=== PATIENT | male | born 1980 | race Caucasian/White ===

== ENCOUNTER 2017-01-23 22:32 | Emergency (ER) | payer OTHER ==
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
--- NOTE | 2017-01-24 01:42 | ED ORDER SUMMARY ---
..... Patient: SHANI PRAKASH OrderSheet [facility] VisitID: [id number] [address] [place] [address] 36y, M Registration Date/Time: 01/23/2017 ORDER SHEET Weight: 90.7 kg (stated) Allergies: No Known Drug Allergy GENERAL ORDERS: Knee 4V Left Urgent (23:22 01/23/2017 DDean R.N. per protocol) (Ack 23:31 CHagerty ER Engine House Helper) (23:38 CHagerty ER Engine House Helper) Femur Left Urgent (00:47 01/24/2017 Damaris BROOKS) (Ack 0:48 CHagerty ER Engine House Helper) (1:25 Enriqueta) Dress Wounds (01:38 01/24/2017 Damaris BROOKS) (1:48 DDavis R.N.) MEDICATION ORDERS: Alprazolam PO 0.5 mg (NOW) (00:51 01/24/2017 Damaris BROOKS) (1:08 TBowen R.N.) IV FLUIDS: ORDER SHEET NOTES: [Electronically signed by Keshav Stewart R.N. (01:57 01/24/2017)] [Electronically signed by Jaden Lyles MD (19:33 01/28/2017)] [Electronically locked/signed by Keshav Stewart R.N. (01:57 01/24/2017)]
--- NOTE | 2017-01-24 01:42 | ED ORDER SUMMARY ---
..... Patient: SHANI PRAKASH OrderSheet [facility] VisitID: [id number] [address] [place] [address] 36y, M Registration Date/Time: 01/23/2017 ORDER SHEET Weight: 90.7 kg (stated) Allergies: No Known Drug Allergy GENERAL ORDERS: Knee 4V Left Urgent (23:22 01/23/2017 DDean R.N. per protocol) (Ack 23:31 CHagerty ER Dowel Sticker Operator) (23:38 CHagerty ER Dowel Sticker Operator) Femur Left Urgent (00:47 01/24/2017 Damaris BROOKS) (Ack 0:48 CHagerty ER Dowel Sticker Operator) (1:25 Enriqueta) Dress Wounds (01:38 01/24/2017 Damarsi BROOKS) (1:48 DDavis R.N.) MEDICATION ORDERS: Alprazolam PO 0.5 mg (NOW) (00:51 01/24/2017 Damaris BROOKS) (1:08 TBowen R.N.) IV FLUIDS: ORDER SHEET NOTES: [Electronically signed by Keshav Stewart R.N. (01:57 01/24/2017)] [Electronically signed by Jaden Lyles MD (19:33 01/28/2017)] [Electronically locked/signed by Keshav Stewart R.N. (01:57 01/24/2017)]
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
--- NOTE | 2017-01-28 19:33 | ED MAR SUMMARY ---
..... Medication Administration Record [facility] [address] [place] [address] Patient: SHANI PRAKASH Visit ID: [id number] 36y, M Weight: 90.7 kg Height/Length: 72 in BMI: 27.1 ALLERGIES: No Known Drug Allergy Given 01:08 01/24/2017 Cresencio Mckenna Medication Administered: ALPRAZOLAM [PO], Dose: 0.5 mg PO. Medication Ordered: Alprazolam PO 0.5 mg (NOW).
--- NOTE | 2017-01-28 19:33 | ED MED RECONCILIATION SUMMARY ---
Patient: SHANI PRAKASH Medication Reconciliation Report [facility] VisitID: [id number] [address] [place] [address] 36y, M Registration Date/Time: 01/23/2017 Weight: 90.7 kg Height/Length: 72 in. BMI: 27.1 ALLERGIES: No Known Drug Allergy The patient's Home Medications are listed below: THE FOLLOWING MEDICATIONS NEED TO BE RECONCILED: Ibuprofen Oral 600 mg, PRN The source(s) of the original Home Medication information: Not obtained. The following Medications were given to the patient in the Emergency Department: Alprazolam [PO] PO 0.5 mg, administered: 01/24/2017 1:08:00 AM The following Medications were prescribed to the patient: None.
--- NOTE | 2017-01-28 19:33 | ED DISCHARGE INSTRUCTIONS ---
Patient: SHANI PRAKASH General Instructions [facility] VisitID: [id number] [address], [place] [id number] 36y, M Registration Date/Time: 01/23/2017 Left knee contusion; left knee effusion; left knee hemarthrosis; sprain of the left medial and lateral collateral ligament. Contusion to the left thigh. INSTRUCTIONS Use crutches as needed. Wear knee immobilizer until better. You may walk and bear weight as tolerated. Warnings: GENERAL WARNINGS: Return or contact your physician immediately if your condition worsens or changes unexpectedly, if not improving as expected, or if other problems arise. Understanding of the discharge instructions verbalized by patient. Follow-up with: [facility], , [address] [place], [address] Follow up in one week. Call for an appointment. ADDITIONAL INFORMATION Contusion,Soft Tissue You have a CONTUSION, which is a bruise with swelling and some bleeding under the skin. There are no broken bones. This injury takes a few days to a few weeks to heal. Home Care: 1) Keep the injured part elevated to reduce pain and swelling. This is especially important during the first 48 hours. 2) Make an ice pack (ice cubes in a plastic bag, wrapped in a towel) and apply for 20 minutes every 1-2 hours the first day. Continue this 3-4 times a day until the pain and swelling goes away. 3) You may use acetaminophen (Tylenol) or ibuprofen (Motrin, Advil) to control pain, unless another pain medicine was prescribed. [ NOTE : If you have chronic liver or kidney disease or ever had a stomach ulcer or GI bleeding, talk with your doctor before using these medicines.] Follow Up with your doctor or this facility if you are not improving within the next THREE days. [NOTE: If X-rays were taken, they will be reviewed by a radiologist. You will be notified of any new findings that may affect your care.] Get Prompt Medical Attention if any of the following occur: -- Pain or swelling increases -- Injured arm or leg becomes cold, blue, numb or tingly -- Redness, warmth or drainage from the skin Knee Pain, Possible Torn Meniscus Themeniscusis a tough cartilage pad that cushions the inside of the knee joint. It serves as a shock absorber and spreads the weight of your body evenly across the knee joint. This prevents excess wear and tear to the bones of that joint. The most common causes of meniscal tears are due to injury (especially related to sports) and degenerative disease (as occurs with aging). A meniscus tear commonly occurs during a twisting injury when the knee is bent. This causes pain, swelling, reduced movement of the knee and difficulty walking. There may be popping, clicking, joint locking or inability to completely straighten the knee. Ligaments of the knee may also be injured. Initial diagnosis of a torn meniscus is by physical exam and x-rays. In the case of an acute injury, the knee may be too painful to examine fully. A more accurate exam can be performed after the initial swelling goes down. An MRI (magnetic image scan) may be ordered to make a final diagnosis. Initial treatment of a suspected meniscal injury is with ice and rest and preventing movement of the knee. A splint or Velcro knee immobilizer may be applied to protect the joint. Depending on the severity of the injury, surgery may be required. A cartilage injury may take 4-12 weeks to heal depending on the severity. Home Care: Stay off the injured leg as much as possible until you can walk on it without pain. If you have a lot of pain with walking, crutches or a walker may be prescribed. (These can be rented or purchased at many pharmacies and surgical or orthopedic supply stores). Follow your doctor's advice regarding when to begin bearing weight on that leg. Keep your leg elevated to reduce pain and swelling. When sleeping, place a pillow under the injured leg. When sitting, support the injured leg so it is level with your waist. This is very important during the first 48 hours. Apply an ice pack (ice cubes in a plastic bag, wrapped in a towel) over the injured area for 20 minutes every 1-2 hours the first day. You can place the ice pack directly over the splint. If a Velcro knee immobilizer was applied, you can open this to apply the ice pack directly to the knee. Continue with ice packs 3-4 times a day for the next two days, then as needed for the relief of pain and swelling. You may use acetaminophen (Tylenol) or ibuprofen (Motrin, Advil) to control pain, unless another pain medicine was prescribed. [NOTE: If you have chronic liver or kidney disease or ever had a stomach ulcer, talk with your doctor before using these medicines.] If you were given a splint, keep it completely dry at all times. Bathe with your splint out of the water, protected with a large plastic bag, rubber-banded at the top end. If a fiberglass splint gets wet, you can dry it with a hair-dryer. If you have a Velcro knee immobilizer, you can remove this to bathe, unless told otherwise. Check with your doctor before returning to sports or full work duties. Follow Up with your doctor, or as advised, within 1-2 weeks for another exam. Further testing may be required to assess the extent of your injury. [NOTE: If X-rays were taken, they will be reviewed by a radiologist. You will be notified of any new findings that may affect your care.] Get Prompt Medical Attention if any of the following occur: Toes or foot becomes swollen, cold, blue, numb or tingly Pain or swelling increases over the knee or calf Warmth or redness appears over the knee or calf Shortness of breath or chest pain Fever over 100.4F (38.0C) Knee Effusion A knee effusion is sometimes calledwater on the knee. The knee joint normally contains less than one ounce of lubricating fluid. Injury or inflammation of the knee joint causes extra fluid to collect there. When this occurs, the knee joint looks swollen and is usually painful. There may be difficulty in fully bending the knee. The most common cause of knee effusion is osteoarthritis due to wear and tear on the joint cartilage. Other causes include injury to the cartilage, inflammatory arthritis (such as gout or rheumatoid arthritis), and infection of the joint. If the cause of your knee effusion is not certain, a needle aspiration may be performed. This procedure removes a sample of joint fluid from the knee for testing. This is done with a local anesthetic. Removing excess fluid may also relieve swelling and pain. Home Care: Limit your activities. Avoid weight-bearing activities as much as possible when your knee is painful and swollen. Keep your leg elevated to reduce pain and swelling. When sleeping, place a pillow under the injured leg. When sitting, support the injured leg so it is level with your waist. This is very important during the first 48 hours. Apply an ice pack (ice cubes in a plastic bag, wrapped in a towel) over the injured area for 20 minutes every 1-2 hours the first day. Continue with ice packs 3-4 times a day for the next two days, then as needed for the relief of pain and swelling. You may use acetaminophen (Tylenol) or ibuprofen (Motrin, Advil) to control pain, unless another pain medicine was prescribed. [NOTE: If you have chronic liver or kidney disease or have ever had a stomach ulcer, talk with your doctor before using these medicines.] Ifcrutches or a walker have been recommended, do not bear full weight on the injured leg until you can do so without pain. Check with your doctor before returning to sports or full work duties. If you were given a Velcro knee brace: You may open the splint to apply ice. You may remove the splint to bathe and sleep, unless told otherwise. Follow Up with your doctor or as advised by our staff. If you are overweight, talk to your doctor about a weight loss program. The excess weight puts extra strain on your knees. Return Promptly or contact your doctor if any of the following occur: Increasing pain, redness or swelling of the knee Fever of 100.4F (38C) or higher, or as directed by your healthcare provider Knee Sprain, Collateral Ligaments The knee is a hinge joint supported by four strong ligaments. The two ligaments inside the knee (cruciate ligaments) protect this joint from excess forward and backward movement. The ligaments on the outside of the joint (collateral ligaments) prevent absl-fy-dafp motion. The medial collateral ligament (MCL) is located on the inner side of the joint; and the lateral collateral ligament (LCL) is on the outer side of the joint. You have sprained one or both collateral ligaments. A sprain is a tearing of a ligament. The tear may be partial or complete. Diagnosis is made by physical exam. In the case of an acute injury, the knee may be too swollen or painful to examine fully. A more accurate exam can be performed after the initial swelling goes down. Symptoms of a knee sprain include immediate knee swelling, pain, and difficulty walking.Initial treatment includes resting the joint, splinting to reduce movement of the joint, use of ice to reduce swelling and pain. Non-steroidal anti-inflammatory drugs (NSAIDs), such as ibuprofen, may be prescribed. Most sprains will heal in one to four weeks.A severe injury can take three to four months to heal and requires rehabilitation exercises. Surgery is usually not required for sprains involving only the collateral ligaments. Home care The following guidelines will help you care for your injury at home: Stay off the injured leg as much as possible until you can walk on it without pain. If you have a lot of pain while walking, crutches, or a walker may be prescribed. (These can be rented or purchased at many pharmacies and surgical or orthopedic supply stores.) Follow your doctor's advice regarding when to begin bearing weight on that leg. If you were given a qpgd-skh-elwo closure knee brace, you can remove this to bathe, but leave it in place when walking, sitting, or lying down (unless told otherwise). Apply an ice pack (ice cubes in a plastic bag, wrapped in a towel) over the injured area for 20 minutes every 12 hours the first day. If a jajo-rye-wlab closure knee brace was applied, you can open this to apply the ice pack directly to the knee. Continue with ice packs 34 times a day for the next two days, then as needed for the relief of pain and swelling. You may use acetaminophen or ibuprofen to control pain, unless another pain medicine was prescribed. If you have chronic liver or kidney disease or ever had a stomach ulcer or GI bleeding, talk with your doctor before using these medicines. Follow-up care Follow up with the referral doctor, or as advised by our staff. Any X-rays you had today dont show any broken bones, breaks, or fractures. Sometimes fractures dont show up on the first X-ray. Bruises and sprains can sometimes hurt as much as a fracture. These injuries can take time to heal completely. If your symptoms dont improve or they get worse, talk with your doctor. You may need a repeat X-ray. When to seek medical care Get prompt medical attention if any of the following occur: Pain or swelling worsens Shortness of breath or chest pain Swelling or redness or pain of the calf or thigh Crutch Walking Crutch Adjustment Make sure the crutches you use are adjusted to fit you. When you stand, there should be room to fit 2-3 fingers between the top of the crutch and your armpit. 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 Crutch Walking: Place the crutches forward 12" in front of and 6" to the side of your feet. Lean your weight forward as you push down on the handgrips. Your weight should be on your hands and yourstrong leg, not your armpits . Let your body swing through, landing on the strong leg. Advance the crutches forward again. The crutch and the injured leg should move together. Going Up Steps: ("Up with the good") With both crutches on the same step as your feet, push down on the handgrips. Balancing with very light pressure on the weak leg, let your hands support your weight as you raise your strong leg onto the next higher step. Transfer all your weight to your strong leg (still bent) as you move the crutches up to the next step alongside the strong leg. With your weight evenly balanced on the two crutches and your strong leg, straighten your strong knee as you raise the weak leg up to the next step. Going Down Steps: ("Down with the bad") With both crutches on the same step as your feet, push down on the handgrips. With your weight evenly balanced on the two crutches and your strong leg, bend your strong knee as you lower the weak leg down to the next step. Let your strong leg support you (still bent) as you move the crutches down alongside the weak leg. Transfer your weight to your hands, balancing with very light pressure on the weak leg as you lower your strong leg alongside your weak leg. Knee Immobilizer A KNEE IMMOBILIZER is used to provide support and limit movement of the knee. This will make you more comfortable as your injury heals. Home Use: 1) Unless told otherwise, the knee brace should be worn whenever you are out of bed. You may wear it in bed while asleep for the first few nights or until the pain starts to go away. Otherwise, remove the brace at night to avoid muscle stiffness from lack of joint movement. 2) You can open the velcro brace to dress, bathe and apply ice packs as directed. Get Prompt Medical Attention if any of the following occur: -- Worsening pain in the knee -- Weakness or numbness or tingling in the foot -- Increased swelling, redness or warmth of the knee joint You have been given the following additional information: Contusion, Soft Tissue Knee Pain, Meniscus Injury (Possible) Knee Effusion Knee Sprain: Collateral Ligaments Crutch Walking Knee Immobilizer You may walk and bear weight as tolerated. (Electronically signed by Jaden Lyles MD 01/28/2017 19:33)
--- NOTE | 2017-01-28 19:33 | ED MAR SUMMARY ---
..... Medication Administration Record [facility] [address] [place] [address] Patient: SHANI PRAKASH Visit ID: [id number] 36y, M Weight: 90.7 kg Height/Length: 72 in BMI: 27.1 ALLERGIES: No Known Drug Allergy Given 01:08 01/24/2017 Cresencio Mckenna Medication Administered: ALPRAZOLAM [PO], Dose: 0.5 mg PO. Medication Ordered: Alprazolam PO 0.5 mg (NOW).
--- NOTE | 2017-01-28 19:33 | ED MED RECONCILIATION SUMMARY ---
Patient: SHANI PRAKASH Medication Reconciliation Report [facility] VisitID: [id number] [address] [place] [address] 36y, M Registration Date/Time: 01/23/2017 Weight: 90.7 kg Height/Length: 72 in. BMI: 27.1 ALLERGIES: No Known Drug Allergy The patient's Home Medications are listed below: THE FOLLOWING MEDICATIONS NEED TO BE RECONCILED: Ibuprofen Oral 600 mg, PRN The source(s) of the original Home Medication information: Not obtained. The following Medications were given to the patient in the Emergency Department: Alprazolam [PO] PO 0.5 mg, administered: 01/24/2017 1:08:00 AM The following Medications were prescribed to the patient: None.
== END 2017-01-24 01:50 | disposition home or self-care (01) ==
LOC: ED SRH 22:32
DX: S80.02XA Contusion of left knee, initial encounter (principal); M25.062 Hemarthrosis, left knee; S83.412A Sprain of medial collateral ligament of left knee, initial encounter; S83.422A Sprain of lateral collateral ligament of left knee, initial encounter; M25.462 Effusion, left knee; S70.12XA Contusion of left thigh, initial encounter; V29.9XXA Motorcycle rider (driver) (passenger) injured in unspecified traffic accident, initial encounter; Y93.89 Activity, other specified; Y92.410 Unspecified street and highway as the place of occurrence of the external cause; Y99.9 Unspecified external cause status